=== PATIENT | female | born 1960 ===

== ENCOUNTER 2020-09-21 08:40 | Day surgery (SDC) | payer OTHER ==
[~2020-09-21 08:40] MED LIST: COZAAR100 MG PO; NORVASC10 MG PO; SOLIQUA 100 UNIT3 ML; TENORMIN50 M1 PO
== END 2020-09-21 20:15 | disposition home or self-care (01) ==
LOC: CIR.AMB 08:40
PROVIDERS: ATTEND Obstetrics & Gynecology Obstetrics
DX: N72 Inflammatory disease of cervix uteri (principal); Z20.822 Contact with and (suspected) exposure to COVID-19